=== PATIENT | male | born 1985 | race Caucasian/White ===

== ENCOUNTER 2020-02-24 08:02 | Emergency (ER) | payer OTHER ==
[~2020-02-24] VITALS: Ht 190.5 cm; Wt 127.3 kg
[~2020-02-24 08:02] MED LIST: CEPHALEXIN500 M1 PO; LEXAPRO20 MG PO; SINGULAIR 110 MG/TAB PO
[2020-02-24 08:04] VITALS: TEMP 96.7
[2020-02-24] MEDS ORDERED: ZOFRAN ODT4 MG PO (08:59)
[2020-02-24] MEDS ORDERED: ATIVAN 1MG T1 MG/TAB PO ×2 (08:59)
[2020-02-24 09:26] VITALS: BP 128/84; PULSE 88
[2020-02-27] MEDS ORDERED: ATIVAN 1MG T1 MG/TAB PO (15:21)
== END 2020-02-24 09:31 | disposition home or self-care (01) ==
LOC: COL.ER 08:02
DX: F41.9 Anxiety disorder, unspecified (principal); F32.9 Major depressive disorder, single episode, unspecified; Z73.3 Stress, not elsewhere classified
CPT/HCPCS: J2060; J2405; J7030

== ENCOUNTER 2020-11-01 05:11 | Emergency (ER) | payer BC ==
[~2020-11-01] VITALS: Ht 190.5 cm; Wt 127.3 kg
[~2020-11-01 05:11] MED LIST changes: +ATIVAN 1MG T1 MG/TAB PO; +ZOFRAN ODT4 MG PO
[2020-11-01 05:59] LABS: BASO # 0.1 (0.0-0.2); BASO % 0.9 % (0.0-2.0); EOS # 0.2 (0.0-0.7); EOS % 2.5 % (0-4.0); GRAN # 4.5 (1.4-6.5); GRAN % 58.8 % (42.2-75.2); HEMATOCRIT 41.5 % (42.0-52.0); HEMOGLOBIN 14.4 g/dl (13.5-18.0); LYMPH # 2.3 (1.2-3.4); LYMPH % 29.8 % (20.0-51.0); MEAN CELL VOLUME 91 fl (80.0-100.0); MEAN CORPUSCULAR HEMOGLOBIN 32 pg (27.0-31.0); MEAN CORPUSCULAR HGB CONC 35 g/dl (33.0-37.0); MONO # 0.6 (0.1-0.6); MONO % 7.7 % (1.7-9.3); PLATELET COUNT 232 K/mm3 (130-400); RED BLOOD COUNT 4.57 M/mm3 (4.20-5.60); REDCELL DISTRIBUTION WIDTH-CV 12.4 % (11.5-14.5)
[2020-11-01 06:11] LABS: BILIRUBIN,TOTAL 0.4 mg/dL (0.0-1.0); C-REACTIVE PROTEIN 0.7 mg/dL (0.0-0.9); CALCIUM 8.7 mg/dL (8.4-10.2); CREATININE, serum 1.22 (0.66-1.25); POTASSIUM 3.8 mmol/L (3.4-5.0); TOTAL PROTEIN 6.9 gm/dL (6.4-8.2)
[2020-11-01 07:52] LABS: COLLECTION METHOD CLEAN CATCH
[2020-11-01 08:18] LABS: PH 6 (5-8); SQUAMOUS EPITHELIAL None Seen /hpf; URINE APPEARANCE Clear; URINE BACTERIA None Seen /hpf; URINE BILIRUBIN Negative (NEGATIVE); URINE BLOOD Negative (NEGATIVE); URINE COLOR Straw; URINE GLUCOSE Negative (NEGATIVE); URINE KETONE Negative (NEGATIVE); URINE LEUKOCYTE ESTERASE Negative (NEGATIVE); URINE NITRATE Negative (NEGATIVE); URINE PROTEIN(semi-quant) Negative (NEGATIVE); URINE UROBILINOGEN Negative (NEGATIVE)
[2020-11-01] MEDS ORDERED: FLOMAX 0.40.4 MG/CAP PO (08:31)
[2020-11-01] MEDS ORDERED: NORCO 325 MG-51 TAB PO (08:31)
[2020-11-01 08:40] VITALS: BP 140/89; PULSE 82; TEMP 98.6
== END 2020-11-01 08:45 | disposition home or self-care (01) ==
LOC: COL.ER 05:11
PROVIDERS: Emergency Medicine
DX: R10.32 Left lower quadrant pain (principal); R19.7 Diarrhea, unspecified; Z20.822 Contact with and (suspected) exposure to COVID-19; Z87.891 Personal history of nicotine dependence
CPT/HCPCS: J1170; J1885; J2270; J2405; J7030; Q9967